=== PATIENT | female | born 1990 | race Caucasian/White ===

== ENCOUNTER 2022-11-30 00:30 | Emergency (ER) | payer OTHER ==
[2022-11-30] MEDS ORDERED: Lidocaine/EPINEPHrine/Tetracaine Soln 1 ML TOP STA (00:51)
== END 2022-11-30 02:05 | disposition home or self-care (01) ==
LOC: JD.ED 00:30
DX: S01.01XA Laceration without foreign body of scalp, initial encounter (principal); S81.811A Laceration without foreign body, right lower leg, initial encounter; Z86.16 Personal history of COVID-19; Z72.0 Tobacco use; Y04.0XXA Assault by unarmed brawl or fight, initial encounter
CPT/HCPCS: 12002; 99283; J3490